=== PATIENT | male | born 1945 | race Caucasian/White ===

== ENCOUNTER 2017-02-21 06:19 | Inpatient (IN) | payer OTHER ==
[~2017-02-21 06:19] MED LIST: oxyCODONE HCL 10 MG SUSTAINED ACTING TABLET PO STA
[2017-02-21] MEDS ORDERED: oxyCODONE HCL 10 MG SUSTAINED ACTING TABLET PO STA (06:48)
[2017-02-21] MEDS ORDERED: THROMBIN (BOVINE) 5,000 UNIT VIAL TP ONE (07:27)
[2017-02-21] MEDS ORDERED: LIDOCAINE 1%/EPI 1:100000 (20 ML MULTI DOSE VIAL) ONE (07:28)
[2017-02-21] MEDS ORDERED: LIDOCAINE HCL 1%, 10 MG/ML (20ML VIAL) ONE (07:30)
[2017-02-21 07:48] VITALS: BMI 35.9
[2017-02-21] MEDS ORDERED: BUPIVACAINE HCL/PF (5 MG/ML) 30 ML VIAL IJ ONE (07:52)
[2017-02-21] MEDS ORDERED: DEXAMETHASONE SOD PHOSPHATE/PF 10 MG/ML SDV ONE (07:52)
[2017-02-21] MEDS ORDERED: oxyCODONE HCL 10 MG SUSTAINED ACTING TABLET ONE (07:54)
--- NOTE | 2017-02-21 07:54 | HP ---
History & Physical Update - History History: No Change - Physical Physical: No Change - Assessment Assessment: No Change - Plan Plan: No Change
[2017-02-21] MEDS ORDERED: BUPIVACAINE HCL/PF 0.5% (5MG/ML) 10 ML VIAL ONE (08:22)
[2017-02-21] MEDS ORDERED: MIDAZOLAM HCL 2 MG/2 ML SINGLE DOSE VIAL ONE (08:26)
[2017-02-21] MEDS ORDERED: PROPOFOL 20 ML ONE (08:26)
[2017-02-21] MEDS ORDERED: SUCCINYLCHOLINE CHLORIDE 200 MG/10 ML VIAL ONE (08:27)
[2017-02-21] MEDS ORDERED: DEXAMETHASONE SOD PHOSPHATE 4 MG/1 ML VIAL ONE ×2 (08:27→08:57)
[2017-02-21] MEDS ORDERED: ceFAZolin SODIUM 1 GM VIAL ONE (08:27)
[2017-02-21] MEDS ORDERED: ONDANSETRON 4 MG/2 ML VIAL ONE (08:27)
[2017-02-21] MEDS ORDERED: ePHEDrine SULFATE 50 MG/1 ML AMPULE ONE (09:34)
--- NOTE | 2017-02-21 10:56 | OP ---
Operative Note - Note: Operative Date: 02/21/17 Pre-Operative Diagnosis: L4/5 spondylolithesis Operation: transforaminal lumbar interbody fusion/decompression/instrumentation L4/5, allograft implant, neuromonitoring Post-Operative Diagnosis: Same as Pre-op Surgeon: Micky Duval Aging Room Operator: Gerard Butler Anesthesiologist/UX UI DESIGNER: Fei Puckett Anesthesia: Spinal Estimated Blood Loss (mls): 20 Fluid Volume Replaced (mls): 700 Operative Report Dictated: Yes
[2017-02-21] MEDS ORDERED: oxyCODONE HCL 5 MG TABLET PO PRN ×2 (10:57→11:05)
[2017-02-21] MEDS ORDERED: ONDANSETRON 4 MG/2 ML VIAL IVPUSH PRN (10:57)
--- NOTE | 2017-02-21 10:57 | SURG ---
Surgery Scrap Collector Note Scrap Collector: Gerard Butler PA-C Date of Service: 02/21/17 Diagnosis: L4/5 spondylolithesis, radiculopathy Procedure: transforaminal lumbar interbody fusion/decompression/instrumentation L4/5, allograft implant, neuromonitoring I was present for the entirety of the operative procedure. For further detail, please refer to operative report. Visit type - Case Type Case Type: Scheduled Admission - New patient This patient is new to me today: Yes Date on this admission: 02/21/17
[2017-02-21] MEDS ORDERED: LACTATED RINGERS SOLUTION 1,000 ML IV SCH (11:00)
[2017-02-21] MEDS ORDERED: diazePAM 2 MG TABLET ONE (11:49)
[2017-02-21] MEDS: CEFAZOLIN 2 GM/D5W 2 GM/50 ML ML IVPB SCH (18:01)
[2017-02-21] MEDS: ACETAMINOPHEN 325 MG TABLET (FP) PO SCH ×2 (18:01→23:47)
[2017-02-21] MEDS: traMADol HCL 50 MG TABLET PO SCH ×2 (18:02→23:48)
[2017-02-21] MEDS: RAMIPRIL 5 MG CAPSULE (FP) PO SCH (21:48)
[2017-02-21] MEDS: INSULIN SLIDING SCALE (NOVOLOG) 1 VIAL SQ SCH (21:53)
[2017-02-21] MEDS ORDERED: PATIENT'S OWN MEDICATION (NON-FORMULARY) (Insulin Glargine,Hum.Rec.Anlog 60 UNITS) SQ SCH (22:00)
[2017-02-22] MEDS: diazePAM 2 MG TABLET PO SCH ×4 (00:05→21:51)
[2017-02-22] MEDS: CEFAZOLIN 2 GM/D5W 2 GM/50 ML ML IVPB SCH ×2 (01:18→09:32)
[2017-02-22] MEDS: ACETAMINOPHEN 325 MG TABLET (FP) PO SCH ×3 (06:01→17:36)
[2017-02-22] MEDS: traMADol HCL 50 MG TABLET PO SCH (06:01)
[2017-02-22] MEDS: INSULIN SLIDING SCALE (NOVOLOG) 1 VIAL SQ SCH ×5 (06:41→21:48)
[2017-02-22 08:34] LABS: ANION GAP 8 (8-16); BLOOD UREA NITROGEN 47 mg/dl (7-18); CALCIUM 8.9 mg/dl (8.4-10.2); CHLORIDE 99 mmol/L (98-107); CO2 26 mmol/L (22-28); CREATININE 2.1 mg/dl (0.6-1.3); POTASSIUM 5.5 mmol/L (3.5-5.1); SODIUM 133 mmol/L (136-145)
[2017-02-22 08:49] LABS: HEMATOCRIT 39.5 % (35.4-49); HEMOGLOBIN 12.8 GM/dl (11.7-16.9); MCH 28.3 pg (25.7-33.7); MCHC 32.5 g/dl (32.0-35.9); MEAN PLT VOLUME 9.9 fl (7.5-11.1); PLATELET COUNT 266 K/MM3 (134-434); RBC 4.54 M/mm3 (4.00-5.60); RDW 19.1 % (11.9-15.9); WHITE BLOOD COUNT 16.5 K/mm3 (4.0-10.8)
[2017-02-22 08:56] LABS: GLUCOSE,RANDOM 325 mg/dl (74-106)
--- NOTE | 2017-02-22 09:14 | OP ---
DATE OF OPERATION: 02/21/2017 PREOPERATIVE DIAGNOSES: 1. Spinal stenosis at L4-5. 2. Spondylolisthesis at L4-5. POSTOPERATIVE DIAGNOSES: 1. Spinal stenosis at L4-5. 2. Spondylolisthesis at L4-5. PROCEDURE PERFORMED: 1. Transforaminal lumbar interbody fusion at L4-5. 2. Placement of instrumentation. 3. Hemilaminectomy. SURGEON: Micky Duval MD ACCESS LIAISON: OLLIE Malik ESTIMATED BLOOD LOSS: 50 mL INTRAVENOUS FLUIDS: Per Anesthesia. ANESTHESIA: Spinal. COMPLICATIONS: None. DISPOSITION: Patient brought to the PACU in stable condition. INDICATIONS FOR SURGERY: The patient is a 71-year-old gentleman who has been suffering from pain from his back down his leg. X-rays and MRI were completed which noted that he had spinal stenosis at L4-5 secondary to a spondylolisthesis. He had gone through an exhaustive course of treatment for this which included medications, physical therapy, as well as injections. Unfortunately, his pain continued to persist despite all this. At this point, risks, benefits, and alternatives were discussed, and the patient consented to surgery. DESCRIPTION OF PROCEDURE: Patient was brought to the operating room by the anesthesia staff. After appropriate patient identification was performed, spinal anesthesia was given. He was able to position himself prone on the OR table with all areas of bony prominences well padded at this time. The C-arm was brought in, and the L4 and L5 pedicles were marked off. Next, 10 mL of lidocaine with epinephrine were injected into his back at this time. His back was prepped and draped in a sterile manner. At this point, timeout was completed. Incisions were made bilaterally over the L4 and L5 pedicles. Dissection was carried down to the fascia. Fascia was split at this time. C-arm was brought in, and trocars were used to advance the pedicles at both L4 and L5. Through the trocars, wires were inserted. Over the wires, tap was performed and the screws inserted. On the left-hand side, retractor blades were set up to expose the L4-5 facet joint. This was confirmed with x-ray. The facet joint was removed with an osteotome and bur. The disk was visualized. It was entered using a series of pituitaries, Kerrisons, and curettes. The diskectomy was completed. The endplates were decorticated at this time. Bone graft was laid down. Occasional bone graft was placed in. A hemilaminectomy was completed. Tulip pads were placed over the screws. A karen was measured and placed in. Caps were placed on. Compression was applied. On the right-hand side, a karen was measured and placed in. Caps and compression were applied. All extra instrumentation was removed at this time. AP and lateral x-rays confirmed the instrumentation to be in good position. The fascia was closed via No. 1 Vicryl suture. Subcutaneous tissues were closed with 2-0 Vicryl suture. Skin was closed with 3-0 Monocryl suture. Dermabond was applied. Steri-Strips were applied. A sterile dressing was applied. Patient was placed supine on the OR bed and brought to the PACU in stable condition. Law [id number]
[2017-02-22] MEDS: RAMIPRIL 5 MG CAPSULE (FP) PO SCH (09:32)
[2017-02-22] MEDS: FERROUS SO4 325 MG TABLET (FP) PO SCH (09:32)
[2017-02-22] MEDS: MULTIVITAMINS (DAILY MVI) TABLET (FP) PO SCH (09:32)
[2017-02-22] MEDS ORDERED: ASPIRIN COATED 81 MG TABLET.EC PO SCH (10:00)
[2017-02-22] MEDS ORDERED: HYDROCHLOROTHIAZIDE 25 MG TABLET (FP) PO SCH (10:00)
--- NOTE | 2017-02-22 11:01 | DS ---
Physical Exam: SUBJECTIVE: Patient seen and examined this am OBJECTIVE: Vital Signs Temperature 97.5 F L 02/22/17 06:00 Pulse Rate 86 02/22/17 06:00 Respiratory Rate 18 02/22/17 08:28 Blood Pressure 136/66 02/22/17 06:00 O2 Sat by Pulse Oximetry (%) 96 02/22/17 08:28 PHYSICAL EXAM GENERAL: The patient is awake, alert, and fully oriented, in no acute distress. HEAD: Normal with no signs of trauma. EYES: PERRL, extraocular movements intact, sclera anicteric, conjunctiva clear. ENT: Ears normal, nares patent, oropharynx clear without exudates, moist mucous membranes. NECK: Trachea midline, full range of motion, supple. LUNGS: Breath sounds equal, clear to auscultation bilaterally, no wheezes, no crackles, no accessory muscle use. HEART: Regular rate and rhythm, S1, S2 without murmur, rub or gallop. ABDOMEN: Soft, nontender, nondistended, normoactive bowel sounds, no guarding, no rebound, no hepatosplenomegaly, no masses. EXTREMITIES: 2+ pulses, warm, well-perfused, no edema. NEUROLOGICAL: Cranial nerves II through XII grossly intact. Normal speech, gait not observed. PSYCH: Normal mood, normal affect. SKIN: Warm, dry, normal turgor, no rashes or lesions noted. LABS CBC,CMP WBC 16.5 K/mm3 (4.0-10.8) H 02/22/17 07:30 RBC 4.54 M/mm3 (4.00-5.60) 02/22/17 07:30 Hgb 12.8 GM/dl (11.7-16.9) 02/22/17 07:30 Hct 39.5 % (35.4-49) 02/22/17 07:30 MCV 87.0 fl (80-96) 02/22/17 07:30 MCH 28.3 pg (25.7-33.7) 02/22/17 07:30 MCHC 32.5 g/dl (32.0-35.9) 02/22/17 07:30 RDW 19.1 % (11.9-15.9) H 02/22/17 07:30 Plt Count 266 K/MM3 (134-434) 02/22/17 07:30 MPV 9.9 fl (7.5-11.1) 02/22/17 07:30 Sodium 133 mmol/L (136-145) L 02/22/17 07:30 Potassium 5.5 mmol/L (3.5-5.1) H 02/22/17 07:30 Chloride 99 mmol/L (98-107) 02/22/17 07:30 Carbon Dioxide 26 mmol/L (22-28) 02/22/17 07:30 Anion Gap 8 (8-16) 02/22/17 07:30 BUN 47 mg/dl (7-18) H 02/22/17 07:30 Creatinine 2.1 mg/dl (0.6-1.3) H 02/22/17 07:30 POC Glucometer 283 UNITS (80-120) 02/22/17 06:17 Random Glucose 325 mg/dl (74-106) H* 02/22/17 07:30 Calcium 8.9 mg/dl (8.4-10.2) 02/22/17 07:30 HOSPITAL COURSE: Date of Admission:02/21/17 Date of Discharge: 02/22/17 The patient was admitted to the Med-Surg Unit after an elective repair of their (problem). Now, s/p ( procedure ). The day of surgery, the patient ambulated the hallways with assistance. Narcotic and non-narcotic pain management control was achieved with an oral and IV approach. POD #1, the surgical drain was removed fully intact and without incident. An xray was obtained and confirmed hardware placement at (level of ), no fractures or dislocations. Phylicia-operative IV ABX were administered. DVT prophylaxis was achieved with SCDs and early ambulation. The patient ambulated with Physical Therapy and no services were recommended upon discharge. Narcotic scripts and or muscle relaxants were checked with [place] [employer] prior to escibe. The discharge instructions and an oral pain management plan were reviewed with the patient. All questions answered. Above plan discussed with Dr. Duval and agreed.
[2017-02-22] MEDS ORDERED: SODIUM CHLORIDE 500 ML IV STA (11:08)
--- NOTE | 2017-02-22 11:32 | PN ---
Progress Note (short form) - Note Progress Note: 71M POD1 s/p lumbar fusion under spinal anesthetic with b/l TLIP blocks. Pt states that pain is well controlled. Elevated glucose improving. Slight worsening of chronic stage 3 renal dysfunction. D/C'd ultram. Continue oxycodone sliding scale for pain control.
[2017-02-22 14:01] LABS: ANION GAP 9 (8-16); BLOOD UREA NITROGEN 52 mg/dl (7-18); CALCIUM 8.5 mg/dl (8.4-10.2); CHLORIDE 97 mmol/L (98-107); CO2 24 mmol/L (22-28); CREATININE 2.4 mg/dl (0.6-1.3); POTASSIUM 5.2 mmol/L (3.5-5.1); SODIUM 130 mmol/L (136-145)
[2017-02-22 14:19] LABS: GLUCOSE,RANDOM 371 mg/dl (74-106)
[2017-02-22] MEDS ORDERED: INSULIN (NOVOLOG) ASPART 100 UNITS/ML 10ML VIAL ONE ×3 (14:55→21:45)
[2017-02-22] MEDS ORDERED: SODIUM CHLORIDE 1,000 ML IV SCH ×2 (15:00→17:54)
--- NOTE | 2017-02-22 15:51 | PN ---
Progress Note (short form) - Note Progress Note: Pt seen and examined this am. He states that he is having some incisional pain. Voiding on his own, ambulating in the hallways and tolerating a diet. Vital Signs Period Temp Pulse Resp BP Sys/Anand Pulse Ox Last 24 Hr 97.3 F-98.0 F 77-100 18-20 125-136/60-66 94-96 PE: GEn: A&0x3, NAD CV: RRR Lungs: CTA b/l ABD: soft, non-distended, non-tender. Bladder scan: minimal urine after voiding. Neuro: 5/5 dorsi/plantar flexion, EHL 5/5 B/L. LE: no calf tenderness or swelling noted b/l. Back: dressing c/d/i with tegaderm CBC, BMP 02/22/17 07:30 02/22/17 13:00 Laboratory Tests 02/22/17 07:30 Potassium 5.5 H BUN 47 H Creatinine 2.1 H Laboratory Tests 02/21/17 02/22/17 02/22/17 21:51 06:17 13:00 POC Glucometer 359 283 Random Glucose 371 H* A/P: 71 yo male s/p L4-L5 fusion, POD#1 The patient was given NS IVF and then his labs were repeated and are as above D/w Dr. Duval and placed a medical consult. His ramparil and hctz doses are held and will treat him with IVF, NS at 125 ml/hr The medical team will see him as a consult. renal/bladder US ordered BMP ordered for the am Continue oral pain medications as needed oob/ambualte <Tresa Mendoza - Last Filed: 02/22/17 15:54> - Note Progress Note: Patient seen and examined Agree with above Patient has high creatinine levels. Waiting for this to stabilize before D/C. <Micky Duval - Last Filed: 02/23/17 08:24>
[2017-02-22] MEDS ORDERED: INSULIN DETEMIR 100 UNITS/ML MDV SQ SCH (16:30)
--- NOTE | 2017-02-22 17:40 | CONSULT ---
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 HTN, DM II he is post day 1 of lumbar fusion 02/21. Patient is stable following surgery, medicine was consulted for rise in creatinine. - History Source History Provided By: Patient Limitations to Obtaining History: No Limitations - Past Medical History Cardio/Vascular: Yes: HTN Renal/: Yes: Renal Inusuff (ckd 3 ), Cancer (02/2016) - Past Surgical History Past Surgical History: Yes: Laminectomy (02/2017) - Alcohol/Substance Use Hx Alcohol Use: Yes (2-3 WEEK) - Smoking History Smoking history: Current every day smoker Have you smoked in the past 12 months: Yes Aproximately how many cigarettes per day: 10 - Social History Usual Living Arrangement: With Spouse ADL: Independent Place of : [facility] Home Medications - Allergies Allergies/Adverse Reactions: Allergies Allergy/AdvReac Type Severity Reaction Status Date / Time cefaclor [From Ceclor] Allergy Severe Swelling Verified 02/19/17 14:17 crayfish Allergy Severe Swelling Verified 02/19/17 14:17 shrimp Allergy Severe Swelling Verified 02/19/17 14:18 - Home Medications Home Medications: Ambulatory Orders Aspirin [Aspirin EC] 81 mg PO DAILY 02/19/17 Atorvastatin Ca [Lipitor] 10 mg PO DAILY 02/19/17 Diltiazem HCl [Diltiazem 24Hr ER] 180 mg PO DAILY 02/19/17 Ferrous Sulfate [Feosol] 325 mg PO DAILY 02/19/17 Hydrochlorothiazide 25 mg PO DAILY 02/19/17 Insulin Glargine,Hum.rec.anlog [Lantus Solostar PEN (NF)] 60 units SQ BID Multivitamins [Tab-A-Vit -] 1 tab PO DAILY 02/19/17 Ramipril 10 mg PO BID 02/19/17 Zolpidem Tartrate [Ambien] 10 mg PO HS 02/19/17 Review of Systems - Review of Systems Constitutional: reports: No Symptoms Eyes: reports: No Symptoms HENT: reports: No Symptoms Neck: reports: No Symptoms Cardiovascular: reports: No Symptoms Respiratory: reports: No Symptoms Gastrointestinal: reports: No Symptoms Genitourinary: reports: No Symptoms Musculoskeletal: reports: No Symptoms Integumentary: reports: Incision (tenderness at incision) Neurological: reports: No Symptoms Endocrine: reports: No Symptoms Hematology/Lymphatic: reports: No Symptoms Psychiatric: reports: No Symptoms Physical Exam Vital Signs: Vital Signs Temperature 97.3 F L 02/22/17 14:21 Pulse Rate 77 02/22/17 14:21 Respiratory Rate 19 02/22/17 14:21 Blood Pressure 125/60 02/22/17 14:21 O2 Sat by Pulse Oximetry (%) 94 L 02/22/17 14:21 Constitutional: Yes: Calm Eyes: Yes: Conjunctiva Clear HENT: Yes: Atraumatic Neck: Yes: Supple Cardiovascular: Yes: Regular Rate and Rhythm, S1, S2 Respiratory: Yes: Regular, CTA Bilaterally Gastrointestinal: Yes: Normal Bowel Sounds, Soft Renal/: Yes: WNL Musculoskeletal: Yes: WNL Extremities: Yes: WNL Edema: No Integumentary: Yes: Incision (lumbar spine dressing cdi, tender, no erythema, no swelling) Wound/Incision: Yes: Clean/Dry Neurological: Yes: Alert, Oriented, Cran Nerves II-XII Intact ...Motor Strength: WNL, LUE Psychiatric: Yes: Alert, Oriented Labs: CBC, BMP 02/22/17 07:30 02/22/17 13:00 Imaging - Results X-ray: Report Reviewed Problem List - Problems (1) CKD (chronic kidney disease) stage 3, GFR 30-59 ml/min Code(s): N18.3 - CHRONIC KIDNEY DISEASE, STAGE 3 (MODERATE) (2) LILY (acute kidney injury) Code(s): N17.9 - ACUTE KIDNEY FAILURE, UNSPECIFIED (3) HTN (hypertension) Code(s): I10 - ESSENTIAL (PRIMARY) HYPERTENSION (4) Diabetes mellitus Code(s): E11.9 - TYPE 2 DIABETES MELLITUS WITHOUT COMPLICATIONS Assessment/Plan Assessment: 71 year old male with pmhx ckd 3, htn, dm II, s/p lamentectomy now with LILY on CKD Plan: 1. LILY on CKD 3 - Cr rising - Stop HCTZ, AMARA - Obtain UA - Renal bladder US ordered - IVF 83cc/hr 2. HTN - Stable - Start norvasc tomorrow in lieu of above amara and thiazide holding 3. Hyponatremia - Corrected is 136 4. Hyperkalemia - Down trending with fluids - Repeat in AM - Will give dose of kayexalte x1 now 5. s/p spinal fusion l4-l5 - Per surgery Visit type - Emergency Visit Emergency Visit: Yes ED Registration Date: 02/21/17 Care time: The patient presented to the Emergency Department on the above date and was hospitalized for further evaluation of their emergent condition. - New Patient This patient is new to me today: Yes Date on this admission: 02/22/17 - Critical Care Critical Care patient: No
[2017-02-22] MEDS ORDERED: SODIUM POLYSTYRENE SULFONATE 15 GM/60 ML BOTTLE PO ONE (18:00)
[2017-02-22 21:41] LABS: URINE APPEARANCE Clear; URINE BILIRUBIN Negative (NEGATIVE); URINE BLOOD Negative (NEGATIVE); URINE GLUCOSE (UA) Negative (NEGATIVE); URINE KETONE Negative (NEGATIVE); URINE NITRITE Negative (NEGATIVE); URINE UROBILINOGEN 0.2 (0.2-1.0)
[2017-02-22 21:46] LABS: URINE COLOR YELLOW; URINE PROTEIN 1+ (NEGATIVE)
[2017-02-22] MEDS ORDERED: ATORVASTATIN CA 10 MG TABLET (FP) PO SCH (22:00)
[2017-02-22 23:05] LABS: URINE BACTERIA FEW /hpf (NEGATIVE); URINE RBC 0-2 /hpf (0-3)
[2017-02-23] MEDS: ACETAMINOPHEN 325 MG TABLET (FP) PO SCH ×2 (06:37)
[2017-02-23 06:50] VITALS: BP 134/76; PULSE 76; TEMP 97.9
[2017-02-23] MEDS: INSULIN SLIDING SCALE (NOVOLOG) 1 VIAL SQ SCH (06:56)
[2017-02-23] MEDS ORDERED: PT OWN MED DRAWER 7, Y5N ONE (08:24)
[2017-02-23 08:28] LABS: ANION GAP 11 (8-16); BLOOD UREA NITROGEN 60 mg/dl (7-18); CALCIUM 8.6 mg/dl (8.4-10.2); CHLORIDE 100 mmol/L (98-107); CO2 23 mmol/L (22-28); CREATININE 2.1 mg/dl (0.6-1.3); GLUCOSE,RANDOM 136 mg/dl (74-106); POTASSIUM 4.6 mmol/L (3.5-5.1); SODIUM 134 mmol/L (136-145)
[2017-02-23] MEDS: MULTIVITAMINS (DAILY MVI) TABLET (FP) PO SCH (09:06)
[2017-02-23] MEDS: FERROUS SO4 325 MG TABLET (FP) PO SCH (09:06)
[2017-02-23] MEDS: diazePAM 2 MG TABLET PO SCH (09:06)
[2017-02-23] MEDS ORDERED: amLODIPine BESYLATE 5 MG TABLET (FP) PO SCH (10:00)
--- NOTE | 2017-02-23 11:21 | PN ---
Physical Exam: SUBJECTIVE: Patient seen and examined no acute events overnight OBJECTIVE: Vital Signs Period Temp Pulse Resp BP Sys/Anand Pulse Ox Last 24 Hr 97.3 F-97.9 F 68-77 19-21 112-134/60-76 92-94 Constitutional: Yes: Calm Eyes: Yes: Conjunctiva Clear HENT: Yes: Atraumatic Neck: Yes: Supple Cardiovascular: Yes: Regular Rate and Rhythm, S1, S2 Respiratory: Yes: Regular, CTA Bilaterally Gastrointestinal: Yes: Normal Bowel Sounds, Soft Renal/: Yes: WNL Musculoskeletal: Yes: WNL Extremities: Yes: WNL Edema: No Integumentary: Yes: Incision (lumbar spine dressing cdi, tender, no erythema, no swelling) Wound/Incision: Yes: Clean/Dry Neurological: Yes: Alert, Oriented, Cran Nerves II-XII Intact ...Motor Strength: WNL, LUE Psychiatric: Yes: Alert, Oriented Laboratory Results - last 24 hr 02/22/17 02/22/17 02/22/17 13:00 16:34 21:06 Sodium 130 L Potassium 5.2 H Chloride 97 L Carbon Dioxide 24 Anion Gap 9 BUN 52 H Creatinine 2.4 H POC Glucometer 330 200 Random Glucose 371 H* Calcium 8.5 Urine Color Urine Appearance Urine pH Ur Specific [place] Urine Protein Urine Glucose (UA) Urine Ketones Urine Blood Urine Nitrite Urine Bilirubin Urine Urobilinogen Ur Leukocyte Esterase Urine RBC Urine WBC Urine Bacteria 02/22/17 02/23/17 21:20 07:25 Sodium 134 L Potassium 4.6 Chloride 100 Carbon Dioxide 23 Anion Gap 11 BUN 60 H Creatinine 2.1 H POC Glucometer Random Glucose 136 H D Calcium 8.6 Urine Color Yellow Urine Appearance Clear Urine pH 5.0 Ur Specific [place] 1.020 Urine Protein 1+ H Urine Glucose (UA) Negative Urine Ketones Negative Urine Blood Negative Urine Nitrite Negative Urine Bilirubin Negative Urine Urobilinogen 0.2 Ur Leukocyte Esterase Negative Urine RBC 0-2 Urine WBC 2-4 Urine Bacteria Few Active Medications Generic Name Dose Route Start Last Admin Trade Name Freq PRN Reason Stop Dose Admin Acetaminophen 650 mg 02/21/17 12:00 02/23/17 06:37 Tylenol - PO 650 mg Q6H CALVIN Administration Amlodipine Besylate 5 mg 02/23/17 10:00 02/23/17 09:49 Norvasc - PO 5 mg DAILY CALVIN Administration Atorvastatin Calcium 10 mg 02/22/17 22:00 02/22/17 21:47 Lipitor - PO 10 mg HS CALVIN Administration Diazepam 2 mg 02/21/17 22:00 02/23/17 09:06 Valium - PO 2 mg Q12H CALVIN Administration Diltiazem HCl 180 mg 02/22/17 10:00 02/23/17 09:05 Cardizem Cd - PO 180 mg DAILY CALVIN Administration Ferrous Sulfate 325 mg 02/22/17 10:00 02/23/17 09:06 Feosol - PO 325 mg DAILY CALVIN Administration Sodium Chloride 1,000 mls @ 83 mls/hr 02/22/17 17:54 02/22/17 19:34 Normal Saline - IV 83 mls/hr ASDIR CALVIN Administration Insulin Aspart 1 vial 02/22/17 18:02 02/23/17 06:56 Novolog Vial Sliding Scale - SQ Not Given ACHS CALVIN Protocol Multivitamins/Minerals/Vitamin C 1 tab 02/22/17 10:00 02/23/17 09:06 Tab-A-Vit - PO 1 tab DAILY CALVIN Administration Non-Formulary Medication 60 each 02/22/17 22:00 02/22/17 21:47 Patient's Own Med SQ 60 each BID CALVIN Administration Ondansetron HCl 4 mg 02/21/17 10:57 Zofran Injection IVPUSH Q6H PRN NAUSEA AND/OR VOMITING Oxycodone HCl 5 mg 02/21/17 10:57 Roxicodone - PO Q4H PRN MILD PAIN Oxycodone HCl 10 mg 02/21/17 11:05 Roxicodone - PO Q6H PRN MODERATE PAIN ASSESSMENT/PLAN: 1. Acute on chronic renal failure - likely pre renal . No evidence of obstruction ( post void residual checked ) . Creatinine improved however not back to baseline - hold diuretics - hold ACEIs - hold Victosa - repeat renal function with PMD on saturday - meds to be reinstated under PMD / nephrology guidance if CR is continuously getting better 2. Uncontrolled DM - compliance with diet advised - monitor BG AC & HS 3. Hyperkalemia - resolved Optimised for discharge from acute care fascility however needs close follow up in outpatient setting which is arranged PMD follow up on Saturday Nephrology appointemnt on Tanya Visit type - Emergency Visit Emergency Visit: Yes ED Registration Date: 02/21/17 Care time: The patient presented to the Emergency Department on the above date and was hospitalized for further evaluation of their emergent condition. - New Patient This patient is new to me today: Yes Date on this admission: 02/23/17 - Critical Care Critical Care patient: No - Discharge Referral [facility]erred to [facility] No
--- NOTE | 2017-02-23 15:38 | DS ---
Physical Exam: SUBJECTIVE: Patient seen and examined, he is voiding on his own without difficulty. He is not having any pain issues. tolerating a diet. OBJECTIVE: Vital Signs Temperature 97.9 F 02/23/17 06:00 Pulse Rate 76 02/23/17 06:00 Respiratory Rate 20 02/23/17 09:00 Blood Pressure 134/76 02/23/17 06:00 O2 Sat by Pulse Oximetry (%) 92 L 02/23/17 09:00 PHYSICAL EXAM GENERAL: The patient is awake, alert, and fully oriented, in no acute distress. LUNGS: Breath sounds equal, clear to auscultation bilaterally, no wheezes, no crackles, no accessory muscle use. HEART: Regular rate and rhythm, S1, S2 without murmur, rub or gallop. ABDOMEN: Soft, nontender, nondistended. Staight cath completed after voiding, no residuals were found. EXTREMITIES: No edema. LABS CBC,CMP WBC 16.5 K/mm3 (4.0-10.8) H 02/22/17 07:30 RBC 4.54 M/mm3 (4.00-5.60) 02/22/17 07:30 Hgb 12.8 GM/dl (11.7-16.9) 02/22/17 07:30 Hct 39.5 % (35.4-49) 02/22/17 07:30 MCV 87.0 fl (80-96) 02/22/17 07:30 MCH 28.3 pg (25.7-33.7) 02/22/17 07:30 MCHC 32.5 g/dl (32.0-35.9) 02/22/17 07:30 RDW 19.1 % (11.9-15.9) H 02/22/17 07:30 Plt Count 266 K/MM3 (134-434) 02/22/17 07:30 MPV 9.9 fl (7.5-11.1) 02/22/17 07:30 Sodium 134 mmol/L (136-145) L 02/23/17 07:25 Potassium 4.6 mmol/L (3.5-5.1) 02/23/17 07:25 Chloride 100 mmol/L (98-107) 02/23/17 07:25 Carbon Dioxide 23 mmol/L (22-28) 02/23/17 07:25 Anion Gap 11 (8-16) 02/23/17 07:25 BUN 60 mg/dl (7-18) H 02/23/17 07:25 Creatinine 2.1 mg/dl (0.6-1.3) H 02/23/17 07:25 POC Glucometer 200 UNITS (80-120) 02/22/17 21:06 Random Glucose 136 mg/dl (74-106) H D 02/23/17 07:25 Calcium 8.6 mg/dl (8.4-10.2) 02/23/17 07:25 HOSPITAL COURSE: Date of Admission:02/21/17 Date of Discharge: 02/23/17 The patient was admitted to the Med-Surg Unit after an elective repair of their lumbar spondylolisthesis. Now, s/p L4-L5 fusion. The day of surgery, the patient ambulated the hallways with assistance. Narcotic and non-narcotic pain management control was achieved with an oral and IV approach. An xray was obtained and confirmed hardware placement at (level of ), no fractures or dislocations.Phylicia-operative IV ABX were administered. DVT prophylaxis was achieved with SCDs and early ambulation. The patient as noted to have increase in his BUN/CRET after his surgery. A medical consult was obtained and he was treated with IV hydration. His ramapril/HCTZ were held. 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 The patient ambulated with Physical Therapy and no services were recommended upon discharge. Narcotic scripts and or muscle relaxants were checked with [facility] COUNSELOR AIDE prior to escibe. The discharge instructions and an oral pain management plan were reviewed with the patient. All questions answered. Above plan discussed with Dr. Duval and agreed. Minutes to complete discharge: 30 <Tresa Mendoza - Last Filed: 02/23/17 15:27> Physical Exam: SUBJECTIVE: Patient seen and examined OBJECTIVE: Vital Signs Temperature 97.9 F 02/23/17 06:00 Pulse Rate 76 02/23/17 06:00 Respiratory Rate 20 02/23/17 09:00 Blood Pressure 134/76 02/23/17 06:00 O2 Sat by Pulse Oximetry (%) 92 L 02/23/17 09:00 PHYSICAL EXAM GENERAL: The patient is awake, alert, and fully oriented, in no acute distress. HEAD: Normal with no signs of trauma. EYES: PERRL, extraocular movements intact, sclera anicteric, conjunctiva clear. ENT: Ears normal, nares patent, oropharynx clear without exudates, moist mucous membranes. NECK: Trachea midline, full range of motion, supple. LUNGS: Breath sounds equal, clear to auscultation bilaterally, no wheezes, no crackles, no accessory muscle use. HEART: Regular rate and rhythm, S1, S2 without murmur, rub or gallop. ABDOMEN: Soft, nontender, nondistended, normoactive bowel sounds, no guarding, no rebound, no hepatosplenomegaly, no masses. EXTREMITIES: 2+ pulses, warm, well-perfused, no edema. NEUROLOGICAL: Cranial nerves II through XII grossly intact. Normal speech, gait not observed. PSYCH: Normal mood, normal affect. SKIN: Warm, dry, normal turgor, no rashes or lesions noted. LABS CBC,CMP WBC 16.5 K/mm3 (4.0-10.8) H 02/22/17 07:30 RBC 4.54 M/mm3 (4.00-5.60) 02/22/17 07:30 Hgb 12.8 GM/dl (11.7-16.9) 02/22/17 07:30 Hct 39.5 % (35.4-49) 02/22/17 07:30 MCV 87.0 fl (80-96) 02/22/17 07:30 MCH 28.3 pg (25.7-33.7) 02/22/17 07:30 MCHC 32.5 g/dl (32.0-35.9) 02/22/17 07:30 RDW 19.1 % (11.9-15.9) H 02/22/17 07:30 Plt Count 266 K/MM3 (134-434) 02/22/17 07:30 MPV 9.9 fl (7.5-11.1) 02/22/17 07:30 Sodium 134 mmol/L (136-145) L 02/23/17 07:25 Potassium 4.6 mmol/L (3.5-5.1) 02/23/17 07:25 Chloride 100 mmol/L (98-107) 02/23/17 07:25 Carbon Dioxide 23 mmol/L (22-28) 02/23/17 07:25 Anion Gap 11 (8-16) 02/23/17 07:25 BUN 60 mg/dl (7-18) H 02/23/17 07:25 Creatinine 2.1 mg/dl (0.6-1.3) H 02/23/17 07:25 POC Glucometer 160 UNITS (80-120) 02/23/17 06:10 Random Glucose 136 mg/dl (74-106) H D 02/23/17 07:25 Calcium 8.6 mg/dl (8.4-10.2) 02/23/17 07:25 HOSPITAL COURSE: Date of Admission:02/21/17 Date of Discharge: 02/25/17 The patient was admitted to the Med-Surg Unit after an elective repair of their L4-5 Spondylolisthesis. The day of surgery, the patient ambulated the hallways with assistance. Narcotic and non-narcotic pain management control was achieved with an oral and IV approach. . An xray was obtained and confirmed hardware placement at L4-5, no fractures or dislocations. Phylicia-operative IV ABX were administered. DVT prophylaxis was achieved with SCDs and early ambulation. The patient ambulated with Physical Therapy and no services were recommended upon discharge. Narcotic scripts and or muscle relaxants were checked with [place] COUNSELOR AIDE prior to escibe. The discharge instructions and an oral pain management plan were reviewed with the patient. All questions answered. Above plan discussed with Dr. Duval and agreed. <Micky Duval - Last Filed: 02/25/17 10:38> Visit type - Case Type Case Type: Scheduled Admission - Emergency Emergency Visit: No - New patient This patient is new to me today: Yes Date on this admission: 02/23/17 <Tresa Mendoza - Last Filed: 02/23/17 15:27>
== END 2017-02-23 12:30 | disposition home or self-care (01) | DRG 460 ==
LOC: FM/S 06:19
PROVIDERS: ADMIT Orthopaedic Surgery Orthopaedic Surgery of the Spine; ATTEND Orthopaedic Surgery Orthopaedic Surgery of the Spine
PROC: 01NB0ZZ Release Lumbar Nerve, Open Approach (ICD-10-PCS; 2017-02-21)
PROC: 0QU00KZ Supplement Lumbar Vertebra with Nonautologous Tissue Substitute, Open Approach (ICD-10-PCS; 2017-02-21)
PROC: 4A1104G Monitoring of Peripheral Nervous Electrical Activity, Intraoperative, Open Approach (ICD-10-PCS; 2017-02-21)
PROC: 0SG00AJ Fusion of Lumbar Vertebral Joint with Interbody Fusion Device, Posterior Approach, Anterior Column, Open Approach (ICD-10-PCS; principal; 2017-02-21 09:25)
DX: M43.16 Spondylolisthesis, lumbar region (principal); N17.9 Acute kidney failure, unspecified; E87.1 Hypo-osmolality and hyponatremia; M48.061 Spinal stenosis, lumbar region without neurogenic claudication; E11.65 Type 2 diabetes mellitus with hyperglycemia; I12.9 Hypertensive chronic kidney disease with stage 1 through stage 4 chronic kidney disease, or unspecified chronic kidney disease; E11.22 Type 2 diabetes mellitus with diabetic chronic kidney disease; N18.3 Chronic kidney disease, stage 3 (moderate); F17.210 Nicotine dependence, cigarettes, uncomplicated; E87.5 Hyperkalemia
CPT/HCPCS: 36415; 72100-TC; 80048; 81003; 81015; 85027; 94010; 94760; 97116-GP; 97162-GP